=== PATIENT | female | born 1950 | race Caucasian/White ===

== ENCOUNTER 2017-06-19 16:13 | Inpatient (IN) | payer OTHER ==
[~2017-06-19] VITALS: Ht 160 cm; Wt 100.5 kg
[~2017-06-19 16:13] MED LIST: Coumadin Protocol PO; ESTRATEST H S PO; Feosol PO; Flexeril PO; Proventil,Ventolin H IH; Symbicort 80-4.5 mcg IH; ZYRTEC10 M3 PO
[2017-06-19 19:02] LABS: HEMATOCRIT 43.1 % (36.0-46.0); MCH 32.1 PG (29.0-34.0); MCHC 33.2 G/DL (30.0-36.0); MCV 96.6 FL (83-99); MEAN PLAT.VOLUME 9.6 uM^3 (9.5-12.4); PLATELET COUNT 132 K/uL (156-360); RBC DIS.WIDTH-CV 12.7 % (11.8-14.6); RBC DIS.WIDTH-SD 46.1 % (39-53); RED BLOOD COUNT 4.46 M/uL (3.80-5.20); WHITE BLOOD COUNT 5.6 K/uL (4.1-10.2)
[2017-06-19 19:10] LABS: CHLORIDE 102 mEq/L (99-109); POTASSIUM 3.9 mEq/L (3.7-5.4); SODIUM 139 mEq/L (136-147)
[2017-06-19 19:12] LABS: GLUCOSE 94 mg/dL (70-99)
[2017-06-19 19:13] LABS: ANION GAP 15 MEQ/L (2-14)
[2017-06-19 19:14] LABS: TOTAL BILIRUBIN 0.4 mg/dL (0.0-1.0)
[2017-06-19 19:16] LABS: ALKALINE PHOSPHATASE 65 IU/L (3-129); GFR ESTIMATE (CALCULATED) 52 mL/min/
[2017-06-19 19:17] LABS: UREA NITROGEN (BUN) 7 mg/dL (9-23)
[2017-06-19] MEDS ORDERED: VENTOLIN HFA18 GM IH (21:13)
[2017-06-19] MEDS ORDERED: PAMELOR75 MG PO (21:13)
[2017-06-19] MEDS ORDERED: MUCUS ER600 MG PO ×2 (21:14)
[2017-06-19] MEDS ORDERED: NASAL DECONGEST10 MG PO (21:15)
[2017-06-19] MEDS ORDERED: ZANTAC150 MG PO (21:16)
[2017-06-19] MEDS ORDERED: SYNTHROID88 MCG PO (21:16)
[2017-06-19] MEDS ORDERED: COZAAR100 MG PO (21:16)
[2017-06-19] MEDS ORDERED: SYMBICORT60 INHALAT IH (21:16)
[2017-06-19] MEDS ORDERED: EEMT DS 1.25-21 EACH PO (21:18)
[2017-06-19] MEDS ORDERED: CITRACAL + D C1 EACH PO (21:19)
[2017-06-19] MEDS ORDERED: SINGULAIR10 MG PO (21:19)
[2017-06-19] MEDS ORDERED: REMICADE10 MG/ML IV (21:20)
[2017-06-19] MEDS ORDERED: ULTRAM50 MG PO (21:20)
[2017-06-19] MEDS ORDERED: SOLU-MEDRO40 MG/1 ML IV (21:21)
[2017-06-19] MEDS ORDERED: VISINE A.C300 DROP/1 BOTH EYES (21:22)
[2017-06-19] MEDS ORDERED: FLONASE16 G1 BOTH NARES (21:22)
[2017-06-19 22:07] VITALS: BP 140/71
[2017-06-20 04:07] VITALS: BP 130/66
[2017-06-20 08:23] VITALS: BP 134/68
[2017-06-20 20:19] VITALS: BP 140/70
[2017-06-21] VITALS (7 sets, daily range): BP systolic 112–140; BP diastolic 56–86
[2017-06-21 07:00] LABS: HEMATOCRIT 40.9 % (36.0-46.0); MCH 31.4 PG (29.0-34.0); MCHC 32.8 G/DL (30.0-36.0); MCV 95.8 FL (83-99); PLATELET COUNT 137 K/uL (156-360); RBC DIS.WIDTH-CV 12.7 % (11.8-14.6); RBC DIS.WIDTH-SD 45.1 % (39-53); RED BLOOD COUNT 4.27 M/uL (3.80-5.20); WHITE BLOOD COUNT 7.5 K/uL (4.1-10.2)
[2017-06-21 07:23] LABS: ANION GAP 9 MEQ/L (2-14); CHLORIDE 103 MEQ/L (99-109); GFR ESTIMATE (CALCULATED) 59 mL/min/; GLUCOSE 113 mg/dL (70-99); POTASSIUM 4.3 MEQ/L (3.7-5.4); SAMPLE HEMOLYSIS CHECK 0; SAMPLE ICTERIC CHECK 0; SAMPLE LIPEMIA CHECK 0; SODIUM 139 MEQ/L (136-147); UREA NITROGEN (BUN) 6 mg/dL (9-23)
[2017-06-22 04:00] VITALS: BP 121/64
[2017-06-22 07:10] VITALS: BP 119/65
[2017-06-22 11:30] VITALS: BP 126/58
[2017-06-22 15:05] VITALS: BP 109/56
[2017-06-22 19:26] VITALS: BP 123/60
[2017-06-22 19:32] LABS: Varicella IgM 1.42 (<=0.90)
[2017-06-23 00:14] VITALS: BP 116/57
[2017-06-23 04:25] VITALS: BP 102/55
[2017-06-23 08:15] VITALS: BP 124/86
[2017-06-23 11:08] VITALS: BP 124/82
[2017-06-23] MEDS ORDERED: FERROUS SULFAT325 MG PO (12:47)
[2017-06-23] MEDS ORDERED: CYCLOBENZAPRINE10 MG PO (12:47)
[2017-06-23] MEDS ORDERED: KEFLEX500 MG PO (12:53)
[2017-06-23] MEDS ORDERED: ACYCLOVIR SODI500 MG IV (12:56)
== END 2017-06-23 15:16 | disposition home health service (06) | DRG 596 ==
LOC: EME 16:13 → 3EAST 19:38 → EDOF 19:38 → ENRESERV 19:42 → 3EAST 21:33
PROVIDERS: Family Medicine; Physician Assistant
DX: B02.9 Zoster without complications (principal); L03.211 Cellulitis of face; I12.9 Hypertensive chronic kidney disease with stage 1 through stage 4 chronic kidney disease, or unspecified chronic kidney disease; N18.1 Chronic kidney disease, stage 1; E78.5 Hyperlipidemia, unspecified; J45.909 Unspecified asthma, uncomplicated; K21.9 Gastro-esophageal reflux disease without esophagitis; L40.50 Arthropathic psoriasis, unspecified; M06.9 Rheumatoid arthritis, unspecified; E03.9 Hypothyroidism, unspecified; F32.9 Major depressive disorder, single episode, unspecified; F41.9 Anxiety disorder, unspecified; Z96.652 Presence of left artificial knee joint; Z82.49 Family history of ischemic heart disease and other diseases of the circulatory system; Z90.710 Acquired absence of both cervix and uterus
CPT/HCPCS: 80048; 80053; 85027; 86787 90; 94640; 94640 76; 99202; C1894; J0133; J0690; J1650; J2270; J7050